=== PATIENT | female | born 1990 | race American Indian/Alaskan Native ===

== ENCOUNTER 2017-01-04 11:07 | Outpatient (CLI) | payer MEDICAID ==
[2017-01-04 13:06] VITALS: BP 132/70
--- NOTE | 2017-01-04 13:37 | Ultrasound Report ---
BIOPHYSICAL PROFILE: well-being. 2 - breathing movements 2 - movements 2 - posture and tone 2 - Qualitative amniotic fluid volume 8 - TOTAL SCORE OF POSSIBLE 8 Heart Rate (bpm) 139 Estimated gestational ages 41 weeks 1 day.
--- NOTE | 2017-01-04 13:45 | Ultrasound Report ---
LIMITED OB ULTRASOUND: well-being. Gestation: Patetrson Position: Cephalic KENDALL = 7.5 cm Placenta: N./A. Placental Grade: Heart Rate: 141 BPM Cervical length: Not visualized cm (Normal > 3 cm) The estimated age is 41 weeks 1 day gestation. Impression: Borderline low KENDALL.
== END 2017-01-04 14:01 | disposition home or self-care (01) ==
LOC: TRG 11:07
PROVIDERS: ATTEND Obstetrics & Gynecology
DX: O48.0 Post-term pregnancy (principal); Z87.891 Personal history of nicotine dependence; Z3A.41 41 weeks gestation of pregnancy
CPT/HCPCS: 59025; 76815; 76819

== ENCOUNTER 2017-02-15 23:30 | Emergency (ER) | payer MEDICAID ==
[2017-02-16 02:10] LABS: Bilirubin,Urine NEG (Negative); Blood,Urine NEG (Negative); Ketones,Urine NEG (Negative); Leukocyte Esterase,Urine SM (Negative); Mucus,Urine FEW /HPF; Nitrite,Urine NEG (Negative); Protein,Urine <15 mg/dL mg/dL (Negative)
--- NOTE | 2017-02-16 07:12 | Emergency Department Report ---
ED Female HPI - General Chief complaint: Pain General Stated complaint: R EAR/PELVIS PAIN Time Seen by Provider: 02/16/17 07:04 Source: patient Mode of arrival: Ambulatory Limitations: No Limitations - History of Present Illness Initial comments: Pt reports R ear pain and decreased hearing x 4 days. No other URI sx. Also reports pelvic pain x 1 day without other symptoms. MD Complaint: pelvic pain -: Gradual, days(s) (1) Location: suprapubic Radiation: non-radiating Severity: moderate Quality: aching Consistency: constant Improves with: none Worsens with: none Are you Now?: No Associated Symptoms: denies other symptoms - Related Data Sexually active: Yes Previous Rx's Medication Instructions Recorded Last Taken Type Ondansetron [Zofran Odt] 4 mg PO Q8HR #10 tab.rapdis 05/28/15 Unknown Rx Amoxicillin/K Clav Tab [Augmentin 1 tab PO Q12HR #14 tab 04/13/16 Unknown Rx 875 mg] Chlorpheniramine/Phenylephrine 1 each PO BID #14 tablet 04/13/16 Unknown Rx [Ed-A-Hist 4 mg-10 mg Tablet] Ibuprofen [Motrin] 600 mg PO Q8H PRN #15 tablet 04/13/16 Unknown Rx Ibuprofen [Motrin 800 MG tab] 800 mg PO Q8HR PRN #30 tablet 01/08/17 Unknown Rx Cephalexin [Keflex] 500 mg PO BID #14 capsule 02/16/17 Unknown Rx Ketorolac [Toradol] 10 mg PO Q6H PRN #20 tablet 02/16/17 Unknown Rx Allergies Allergy/AdvReac Type Severity Reaction Status Date / Time No Known Allergies Allergy Unverified 05/28/15 15:08 ED Review of Systems ROS: Stated complaint: R EAR/PELVIS PAIN Other details as noted in HPI Comment: All other systems reviewed and negative Constitutional: denies: chills, fever Eyes: denies: eye pain, eye discharge, vision change ENT: ear pain, hearing loss. denies: throat pain Respiratory: denies: cough, shortness of breath, wheezing Cardiovascular: denies: chest pain, palpitations Endocrine: no symptoms reported Gastrointestinal: denies: abdominal pain, nausea, diarrhea Genitourinary: as per HPI. denies: urgency, dysuria, discharge Musculoskeletal: denies: back pain, joint swelling, arthralgia Skin: denies: rash, lesions Neurological: denies: headache, weakness, paresthesias Psychiatric: denies: anxiety, depression Hematological/Lymphatic: denies: easy bleeding, easy bruising ED Past Medical Hx - Past Medical History Previous Medical History?: Yes Hx Hypertension: No Hx Congestive Heart Failure: No Hx Diabetes: No Hx Deep Vein Thrombosis: No Hx Renal Disease: No Hx Sickle Cell Disease: No Hx Seizures: No Hx Asthma: Yes (as a child) Hx COPD: No Hx HIV: No - Surgical History Past Surgical History?: No - Social History Smoking Status: Never Smoker Substance Use Type: None - Medications Home Medications: Home Medications Medication Instructions Recorded Confirmed Last Taken Type Ondansetron [Zofran Odt] 4 mg PO Q8HR #10 tab.rapdis 05/28/15 Unknown Rx Amoxicillin/K Clav Tab [Augmentin 1 tab PO Q12HR #14 tab 04/13/16 Unknown Rx 875 mg] Chlorpheniramine/Phenylephrine 1 each PO BID #14 tablet 04/13/16 Unknown Rx [Ed-A-Hist 4 mg-10 mg Tablet] Ibuprofen [Motrin] 600 mg PO Q8H PRN #15 tablet 04/13/16 Unknown Rx Ibuprofen [Motrin 800 MG tab] 800 mg PO Q8HR PRN #30 tablet 01/08/17 Unknown Rx Cephalexin [Keflex] 500 mg PO BID #14 capsule 02/16/17 Unknown Rx Ketorolac [Toradol] 10 mg PO Q6H PRN #20 tablet 02/16/17 Unknown Rx ED Physical Exam - General Limitations: No Limitations General appearance: alert, in no apparent distress - Head Head exam: Present: atraumatic, normocephalic - Eye Eye exam: Present: normal appearance - ENT ENT exam: Present: mucous membranes moist, other (small effusion behind R TM, otherwise unremarkable. ) - Neck Neck exam: Present: normal inspection - Respiratory Respiratory exam: Present: normal lung sounds bilaterally. Absent: respiratory distress - Cardiovascular Cardiovascular Exam: Present: regular rate, normal rhythm. Absent: systolic murmur, diastolic murmur, rubs, gallop - GI/Abdominal GI/Abdominal exam: Present: soft (pain to suprapubic area but nontender), normal bowel sounds. Absent: tenderness, guarding, rebound, rigid - Extremities Exam Extremities exam: Present: normal inspection - Back Exam Back exam: Present: normal inspection - Neurological Exam Neurological exam: Present: alert, oriented X3 - Psychiatric Psychiatric exam: Present: normal affect, normal mood - Skin Skin exam: Present: warm, dry, intact, normal color. Absent: rash ED Course Vital Signs 02/16/17 00:15 Temperature 98.2 F Pulse Rate 67 Respiratory 18 Rate Blood Pressure 125/82 [Right] O2 Sat by Pulse 100 Oximetry - Reevaluation(s) Reevaluation #1: 02/16/17 09:37 Pt is in NAD and stable for d/c. ED Medical Decision Making - Radiology Data Radiology results: report reviewed mildly complex R ovarian cyst. no torsion - Medical Decision Making Pt to follow up with PCP regarding ear pain and OBGYN regarding ovarian cyst. - Differential Diagnosis OM, OE, cyst, UTI Critical care attestation.: If time is entered above; I have spent that time in minutes in the direct care of this critically ill patient, excluding procedure time. ED Disposition Clinical Impression: Right ovarian cyst, Otalgia, right ear, Acute UTI (urinary tract infection) Disposition: DC- TO HOME OR SELFCARE Is pt being admited?: No Condition: Good Instructions: Earache (ED), Ovarian Cyst (ED) Prescriptions: Cephalexin [Keflex] 500 mg PO BID #14 capsule Ketorolac [Toradol] 10 mg PO Q6H PRN #20 tablet PRN Reason: Pain Referrals: PRIMARY CAREMD [Primary Care Provider] - 3-5 Days VINNIE MOSER MD [Staff Physician] - 3-5 Days Forms: Work/School Release Form(ED) Time of Disposition: 09:39
--- NOTE | 2017-02-16 08:56 | Ultrasound Report ---
FINAL REPORT PROCEDURE: US PELVIC COMPLETE TECHNIQUE: Transabdominal ultrasound of the pelvis was performed. HISTORY: pelvic pain COMPARISON: None FINDINGS: The uterus measures 7.6 x 4.3 x 7.9 centimeters. The endometrial stripe measures 4 millimeters in AP diameter trans abdominally. There is no significant free fluid within the pelvis. The left ovary measures 3.1 x 1.2 x 1.3 centimeters transabdominal without focal lesion. The right ovary measures 3.2 x 1.7 x 3.4 centimeters transabdominally with a 2.7 x 2.5 centimeter complex cyst. IMPRESSION: Complex cyst of the right ovary. Otherwise unremarkable examination. Please see transvaginal technique presently performed.
[2017-02-16] MEDS ORDERED: MOTRIN PO ONE (09:18)
--- NOTE | 2017-02-16 09:24 | Ultrasound Report ---
FINAL REPORT EXAM: US TRANSVAGINAL HISTORY: pelvic pain TECHNIQUE: Transvaginal pelvic ultrasound. Spectral Doppler analysis performed. PRIORS: None currently available. FINDINGS: Uterus: 7.6 x 4.3 x 7.9 cm. Anteverted. Homogeneous. No distinct lesions. Endometrium: 6.4 mm. Heterogeneously echogenic. Within normal limits. Right ovary: 4.5 x 2.5 x 2.8 cm. Cyst with slight mural nodularity and internal debris measures 3.5 x 2.8 x 1.5 cm. Right ovary demonstrates normal spectral Doppler flow. Left ovary: 2.7 x 1.5 x 2.8 cm. Normal spectral Doppler flow. No adnexal lesions. Minimal free fluid in the cul-de-sac. IMPRESSION: Mildly complex right ovarian cyst. Differential diagnosis includes corpus luteal cyst, hemorrhagic cyst, endometrioma, or complex tumor. 6-12 week follow-up ultrasound is recommended for re-evaluation.
[2017-02-16 09:56] VITALS: BP 124/83
== END 2017-02-16 09:55 | disposition home or self-care (01) ==
LOC: ED 23:30
DX: N83.201 Unspecified ovarian cyst, right side (principal); N39.0 Urinary tract infection, site not specified; H92.01 Otalgia, right ear
CPT/HCPCS: 76830; 76856; 81001; 81025; 99284

== ENCOUNTER 2017-06-03 08:00 | Emergency (ER) | payer MEDICAID ==
[2017-06-03 08:15] VITALS: BP 145/75
[2017-06-03] MEDS ORDERED: MOTRIN PO ONE (09:36)
--- NOTE | 2017-06-03 09:38 | Emergency Department Report ---
ED ENT HPI - General Chief complaint: Earache Stated complaint: BUG IN EAR Source: patient Mode of arrival: Ambulatory Limitations: No Limitations - History of Present Illness Initial comments: 26-year-old -[place] female comes in with complaint of right ear pain that started this morning. Patient reports that she had put peroxide in her right ear and felt something moving in her right ear. Patient has no past medical history she is only on amoxicillin for tooth is been pulled. She is on control which is Depo her last menstrual period was 04/23/2017 she denies any fever chills no nausea no vomiting. She does rate her pain a 9 out of 10. MD complaint: ear pain -: This morning Location: R ear Severity scale (0 -10): 9 Consistency: constant Improves with: none Worsens with: none - Related Data Previous Rx's Medication Instructions Recorded Last Taken Type Ondansetron [Zofran Odt] 4 mg PO Q8HR #10 tab.rapdis 05/28/15 Unknown Rx Chlorpheniramine/Phenylephrine 1 each PO BID #14 tablet 04/13/16 Unknown Rx [Ed-A-Hist 4 mg-10 mg Tablet] Ibuprofen [Motrin 800 MG tab] 800 mg PO Q8HR PRN #30 tablet 01/08/17 Unknown Rx Cephalexin [Keflex] 500 mg PO BID #14 capsule 02/16/17 Unknown Rx Ketorolac [Toradol] 10 mg PO Q6H PRN #20 tablet 02/16/17 Unknown Rx Amoxicillin/K Clav Tab [Augmentin 1 tab PO Q12HR #14 tab 06/03/17 Unknown Rx 875MG TAB] Ibuprofen [Motrin 600 MG tab] 600 mg PO Q8H PRN #15 tablet 06/03/17 Unknown Rx Allergies Allergy/AdvReac Type Severity Reaction Status Date / Time No Known Allergies Allergy Unverified 05/28/15 15:08 ED Dental HPI - General Chief complaint: Earache Stated complaint: BUG IN EAR Source: patient Mode of arrival: Ambulatory Limitations: No Limitations - Related Data Previous Rx's Medication Instructions Recorded Last Taken Type Ondansetron [Zofran Odt] 4 mg PO Q8HR #10 tab.rapdis 05/28/15 Unknown Rx Chlorpheniramine/Phenylephrine 1 each PO BID #14 tablet 04/13/16 Unknown Rx [Ed-A-Hist 4 mg-10 mg Tablet] Ibuprofen [Motrin 800 MG tab] 800 mg PO Q8HR PRN #30 tablet 01/08/17 Unknown Rx Cephalexin [Keflex] 500 mg PO BID #14 capsule 02/16/17 Unknown Rx Ketorolac [Toradol] 10 mg PO Q6H PRN #20 tablet 02/16/17 Unknown Rx Amoxicillin/K Clav Tab [Augmentin 1 tab PO Q12HR #14 tab 06/03/17 Unknown Rx 875MG TAB] Ibuprofen [Motrin 600 MG tab] 600 mg PO Q8H PRN #15 tablet 06/03/17 Unknown Rx Allergies Allergy/AdvReac Type Severity Reaction Status Date / Time No Known Allergies Allergy Unverified 05/28/15 15:08 ED Review of Systems ROS: Stated complaint: BUG IN EAR Other details as noted in HPI Constitutional: denies: chills, fever Eyes: denies: eye pain, eye discharge, vision change ENT: ear pain (right) Respiratory: denies: cough, shortness of breath, wheezing Cardiovascular: denies: chest pain, palpitations Endocrine: no symptoms reported Gastrointestinal: denies: abdominal pain, nausea, diarrhea Genitourinary: denies: urgency, dysuria, discharge Musculoskeletal: denies: back pain, joint swelling, arthralgia Skin: denies: rash, lesions Neurological: denies: headache, weakness, paresthesias Psychiatric: denies: anxiety, depression Hematological/Lymphatic: denies: easy bleeding, easy bruising ED Past Medical Hx - Past Medical History Previous Medical History?: Yes Hx Hypertension: No Hx Congestive Heart Failure: No Hx Diabetes: No Hx Deep Vein Thrombosis: No Hx Renal Disease: No Hx Sickle Cell Disease: No Hx Seizures: No Hx Asthma: Yes (as a child) Hx COPD: No Hx HIV: No Additional medical history: Vaginal delivery x 2 - Surgical History Past Surgical History?: No - Social History Smoking Status: Never Smoker - Medications Home Medications: Home Medications Medication Instructions Recorded Confirmed Last Taken Type Ondansetron [Zofran Odt] 4 mg PO Q8HR #10 tab.rapdis 05/28/15 Unknown Rx Chlorpheniramine/Phenylephrine 1 each PO BID #14 tablet 04/13/16 Unknown Rx [Ed-A-Hist 4 mg-10 mg Tablet] Ibuprofen [Motrin 800 MG tab] 800 mg PO Q8HR PRN #30 tablet 01/08/17 Unknown Rx Cephalexin [Keflex] 500 mg PO BID #14 capsule 02/16/17 Unknown Rx Ketorolac [Toradol] 10 mg PO Q6H PRN #20 tablet 02/16/17 Unknown Rx Amoxicillin/K Clav Tab [Augmentin 1 tab PO Q12HR #14 tab 06/03/17 Unknown Rx 875MG TAB] Ibuprofen [Motrin 600 MG tab] 600 mg PO Q8H PRN #15 tablet 06/03/17 Unknown Rx ED Physical Exam - General Limitations: No Limitations General appearance: alert, in no apparent distress - Head Head exam: Present: atraumatic, normocephalic - Eye Eye exam: Present: normal appearance - Expanded ENT Exam Expanded TM/Canal exam: Foreign Body: Right TM (Anderson to be an insect), Canal Tenderness : Right TM Mouth exam: Present: normal external inspection Teeth exam: Present: normal inspection Throat exam: Positive: normal inspection - Neck Neck exam: Present: normal inspection - Respiratory Respiratory exam: Present: normal lung sounds bilaterally. Absent: respiratory distress - Cardiovascular Cardiovascular Exam: Present: regular rate, normal rhythm. Absent: systolic murmur, diastolic murmur, rubs, gallop ED Course Vital Signs 06/03/17 06/03/17 08:11 09:54 Temperature 98.8 F Pulse Rate 97 H Respiratory 20 18 Rate Blood Pressure 145/75 O2 Sat by Pulse 99 Oximetry - Foreign Body Removal Ear Foreign Body Suspected: insect If Insect Suspected: ear canal instilled with Foreign Body Removed: yes Foreign Body Removal Technique: curette Tympanic Membrane Intact: Yes Patient Tolerated Procedure: well Complications: pain ED Medical Decision Making - Medical Decision Making Patient has been evaluated by this provider fast track. Upon my physical examination of this noted in her right ear that she has an insect. Insect was not moving when I visualize the tympanic membrane. Discussed with nurse and patient that we'll do a ear irrigation to try to remove the blood in her right ear. Patient I give her ibuprofen 600 mg for pain and discomfort. Patient verbalized understanding. Critical care attestation.: If time is entered above; I have spent that time in minutes in the direct care of this critically ill patient, excluding procedure time. ED Disposition Clinical Impression: Acute foreign body of right ear canal Qualifiers: Encounter type: initial encounter Qualified Code(s): T16.1XXA - Foreign body in right ear, initial encounter Disposition: DC-01 TO HOME OR SELFCARE Is pt being admited?: No Does the pt Need Aspirin: No Condition: Stable Additional Instructions: Least take antibiotic as prescribed and finished. Ibuprofen for pain. Follow up with her primary care provider for further evaluation. Prescriptions: Amoxicillin/K Clav Tab [Augmentin 875MG TAB] 1 tab PO Q12HR #14 tab Ibuprofen [Motrin 600 MG tab] 600 mg PO Q8H PRN #15 tablet PRN Reason: Pain Referrals: [facility] [Provider Group] - 3-5 Days Forms: Work/School Release Form(ED)
[2017-06-03] MEDS ORDERED: NACL 0.9% IR ONE (09:41)
[2017-06-03] MEDS ORDERED: NACL 0.9% 500 ML IR ONE (09:43)
[2017-06-03] MEDS ORDERED: LET TOPICAL TP ONE ×2 (09:58→09:59)
== END 2017-06-03 11:09 | disposition home or self-care (01) ==
LOC: ED 08:00
DX: T16.1XXA Foreign body in right ear, initial encounter (principal); J45.909 Unspecified asthma, uncomplicated; W45.8XXA Other foreign body or object entering through skin, initial encounter; Y93.89 Activity, other specified; Y92.89 Other specified places as the place of occurrence of the external cause; Y99.8 Other external cause status